=== PATIENT | female | born 1965 | race Two or more races ===

== ENCOUNTER 2019-01-09 02:58 | Emergency (ER) | payer OTHER ==
[~2019-01-09] VITALS: Ht 152.4 cm; Wt 63.5 kg
[2019-01-09] MEDS ORDERED: PROPRANOLOL HCL20 MG (03:11)
[2019-01-09] MEDS ORDERED: COZAAR50 MG (03:11)
[2019-01-09] MEDS ORDERED: DICLOFENAC SODI50 MG PO (04:49)
== END 2019-01-09 13:31 ==
LOC: ER 02:58
DX: G44.89 Other headache syndrome (principal)